=== PATIENT | female | born 1945 | race Caucasian/White ===

== ENCOUNTER 2023-08-02 09:30 | Day surgery (SDC) | payer MEDICARE ==
[2023-08-02] MEDS ORDERED: Sodium Chloride 0.9(Preservative Free) 10 ML IJ ONE (09:31)
[2023-08-02] MEDS ORDERED: XYLOCAINE-MPF 1% 5ML SDV IJ ONE (09:31)
[2023-08-02] MEDS ORDERED: Depo-Medrol 40 MG/ML IM ONE (09:31)
[2023-08-02] MEDS ORDERED: Lactated Ringers 1,000 ML IV ONE (12:16)
--- NOTE | 2023-08-02 14:06 | XRAY ---
Indication: Lumbar GIUSEPPE. Intraoperative fluoroscopy provided for 17 seconds. 2 digital spot image submitted for interpretation demonstrates posterior needle tip projecting posterior to lumbosacral junction interspace. Small amount of contrast injected for needle tip placement. Correlate with intraoperative findings/report. Incidental L4-L5 spinous process and left L5-S1 fusion hardware.
--- NOTE | 2023-08-02 15:13 | XRAY ---
17 seconds of fluoroscopy was used in surgery for a lumbar GIUSEPPE.
== END 2023-08-02 12:20 | disposition home or self-care (01) ==
LOC: SDC-PAIN 09:30
PROVIDERS: ATTEND Psychiatry & Neurology Pain Medicine
DX: M54.16 Radiculopathy, lumbar region (principal)
CPT/HCPCS: 62323; 72100; 77003; J1030; Q9966

== ENCOUNTER 2024-08-08 16:07 | Emergency (ER) | payer MEDICARE, OTHER ==
[2024-08-08 16:35] VITALS: TEMP 98.2
[2024-08-08] MEDS ORDERED: DUONEB 0.5-3 MG/3 ml Neb IH ONE (17:23)
[2024-08-08] MEDS: DUONEB 0.5-3 MG/3 ml Neb IH ONE (17:24)
--- NOTE | 2024-08-08 17:26 | XRAY ---
Indication: Cough. Comparison: None Portable chest hyperinflated with mild left base pleural effusion/thickening. Remaining heart and lungs unremarkable with incidental left base/left hilar calcified granulomas and coronary stent. Bony thorax intact with osteopenia, mild degenerative changes, and left shoulder arthroplasty.
--- NOTE | 2024-08-08 17:35 | ERPHSYRPT ---
- History of Present Illness Time Seen by Provider: 08/08/24 16:10 Source: patient Exam Limitations: no limitations Patient Subjective Stated Complaint: pt c/o of worsening cough, lung pain and swollen area under right eye, pt had a doctors appt today and she told her to go to the ER due to her worsening cough and the lung pain Triage Nursing Assessment: Pt brought to the ER by her home health care, hypertensive, rates overall pain as 7/10, pulses normal, skin n/w/d, smoker, reports lung pain on the right side, denies cardiac pain, doesn't appear to be in any distress Physician History: 79 years old female with multiple medical problems including chronic respiratory failure secondary to COPD, coronary artery disease with stenting, congestive heart failure, presented in the ER from primary care office with concern for increasing shortness of breath and lower extremity swellings to rule out CHF. Patient reports she has shortness of breath at her baseline which is a little more worse than usual and also coughing up clear to yellow sputum moderate in amount for the last 1 week. No fever or chills reported. Reports it hurts in the lower center of the chest with deep breathing and taking anything orally and does have history of esophageal strictures needing dilatation on a regular basis. No fever or chills reported. Patient oxygen saturation is in mid 90s on 3 L oxygen which she is normally on. Allergies/Adverse Reactions: atorvastatin [From Lipitor] Allergy (Verified 08/08/24 16:35) Home Medications: Albuterol Sulfate [Albuterol Sulfate Hfa] 2 inh PO QID 08/08/24 [History] Amitriptyline HCl 75 mg PO HS 08/08/24 [History] Clopidogrel Bisulfate [Clopidogrel] 75 mg PO QAM 08/08/24 [History] Escitalopram Oxalate 10 mg PO HS 08/08/24 [History] Famotidine 20 mg PO HS 08/08/24 [History] Ferrous Sulfate 325 mg [Feosol 325 mg] 325 mg PO DAILY 08/08/24 [History] Fluticasone/Umeclidin/Vilanter [Trelegy Ellipta 100-62.5-25] 1 each IH DAILY 08/08/24 [History] Isosorbide Mononitrate 30 mg [Imdur 30 MG] 30 mg PO DAILY 08/08/24 [Hi story] PANTOPRAZOLE 40 mg Tablet [Protonix 40MG Tablet] 40 mg PO QAM 08/08/24 [History] Primidone 50 MG [Mysoline 50Mg] 50 mg PO HS 08/08/24 [History] Promethazine HCl 25 mg [Phenergan 25 mg] 25 mg PO UD PRN 08/08/24 [History] Theophylline Anhydrous [Theophylline ER] 300 mg PO QAM 08/08/24 [History] Tolterodine Tartrate [Tolterodine Tartrate ER] 2 mg PO QAM 08/08/24 [History] Hx Influenza Vaccination/Date Given: Yes Hx Pneumococcal Vaccination/Date Given: Yes Travel Risk - International Travel Have you traveled outside of the country in past 3 weeks: No - Emerging Infectious Disease Are you exhibiting symptoms associated with any current EIDs: No - Review of Systems Constitutional: Fatigue Eyes: No Symptoms Ears, Nose, & Throat: Nose Congestion Respiratory: Cough, Dyspnea, Dyspnea on Exertion (SIDDIQUI), Wheezing Cardiac: Chest Pain, Edema Abdominal/Gastrointestinal: No Symptoms Genitourinary Symptoms: No Symptoms Musculoskeletal: Myalgias Skin: No Symptoms Neurological: No Symptoms Psychological: No Symptoms Endocrine: No Symptoms Hematologic/Lymphatic: No Symptoms Immunological/Allergic: No Symptoms - Past Medical History Pertinent Past Medical History: Yes Neurological History: Peripheral Neuropathy Cardiac History: Angina, Myocardial Infarction (OR) Respiratory History: Asthma, COPD, Emphysema, Sleep Apnea GI Medical History: GERD Psycho-Social History: Depression - Past Surgical History Past Surgical History: Yes Cardiac: Cardiac Stent Gastrointestinal: Appendectomy, Cholecystectomy Musculoskeletal: Orthopedic Surgery Female Surgical History: Hysterectomy Other Surgical History: shoulder replacement, left hand finger - Social History Smoking Status: Current every day smoker Exposure to second hand smoke: Yes Drug Use: none - Social Determinants of Health Will the patient participate in the screening: Yes Do you worry about a steady place to live?: No Do you have any problems with any of the following?: No known problems In the past 12 months,have you had to go without utilities?: No Transportation Issues: No Has anyone in your support network made you feel unsafe?: No Have you or anyone in your house had to go w/o enough food: No - Nursing Vital Signs Nursing Vital Signs: Initial Vital Signs Temperature 98.2 F 08/08/24 16:21 Pulse Rate 87 08/08/24 16:21 Respiratory Rate 23 08/08/24 16:21 Blood Pressure 156/95 08/08/24 16:21 O2 Sat by Pulse Oximetry 96 08/08/24 16:21 Pain Scale Pain Intensity 0 - Physical Exam General Appearance: no apparent distress, alert Eye Exam: PERRL/EOMI Ears, Nose, Throat Exam: hearing grossly normal Neck Exam: normal inspection, supple, full range of motion Respiratory Exam: diminished breath sounds, rhonchi, wheezing Cardiovascular/Chest Exam: normal heart sounds, regular rate/rhythm, edema (1+ bilateral pitting edema) Abdominal/Gastrointestinal Exam: soft, normal bowel sounds, No tenderness Extremity Exam: non-tender, normal range of motion Neurologic Exam: alert, oriented x 3, cooperative Skin Exam: normal color SpO2 Interpretation: O2 applied SpO2: 97 O2 Delivery: Nasal Cannula (3 L) - Course EKG Interpreted by Me: RATE (81), Sinus Rhythm, NORMAL AXIS, NORMAL INTERVALS, Q-wave, Non-specific ST Changes Ordered Tests: Active Orders 24 hr Category Date Time Status EKG-ER Only STAT Care 08/08/24 17:40 Completed CHEST 1 VIEW (PORTABLE) Stat Exams 08/08/24 16:27 Completed BLOOD CULTURE Stat Lab 08/08/24 17:52 Received CBC W DIFF Stat Lab 08/08/24 17:16 Completed CMP Stat Lab 08/08/24 17:40 Completed Lactic Acid Stat Lab 08/08/24 17:40 Completed MAGNESIUM Stat Lab 08/08/24 17:40 Completed NT PRO BNPII Stat Lab 08/08/24 17:40 Completed TROPONIN Q4H Lab 08/08/24 17:40 Completed Respiratory Therapy Assessment DAILY RT 08/08/24 17:29 Completed Medication Summary Discontinued Medications Generic Name Dose Route Start Last Admin Trade Name Freq PRN Reason Stop Dose Admin Albuterol/Ipratropium 3 ml 08/08/24 17:16 08/08/24 17:24 Ipratropium/Albuterol Sulfate 3 Ml Ampul.Neb IH 08/08/24 17:17 3 ml STAT ONE Administration Albuterol/Ipratropium Confirm 08/08/24 17:23 Ipratropium/Albuterol Sulfate 3 Ml Ampul.Neb Administered 08/08/24 17:24 Dose 3 ml IH .STK-MED ONE Doxycycline Hyclate 100 mg 08/08/24 19:52 08/08/24 20:11 Doxycycline Hyclate 100 Mg Tablet PO 08/08/24 19:53 100 mg STAT ONE Administration Doxycycline Hyclate Confirm 08/08/24 20:09 Doxycycline Hyclate 100 Mg Tablet Administered 08/08/24 20:10 Dose 100 mg .ROUTE .STK-MED ONE Prednisone 60 mg 08/08/24 19:52 08/08/24 20:11 Prednisone 20 Mg Tablet PO 08/08/24 19:53 60 mg STAT ONE Administration Prednisone Confirm 08/08/24 20:09 Prednisone 20 Mg Tablet Administered 08/08/24 20:10 Dose 60 mg .ROUTE .STK-MED ONE Lab/Rad Data: Laboratory Result Diagrams 08/08/24 17:16 08/08/24 17:40 Laboratory Results 08/08/24 08/08/24 08/08/24 Range/Units 17:56 17:40 17:40 WBC (3.98-10.04) x10^3/uL RBC (3.93-5.22) x10^6/uL Hgb (11.2-15.7) g/dL Hct (34.1-44.9) % MCV (79.4-94.8) fL MCH (25.6-32.2) pg MCHC (32.2-35.5) g/dL RDW (11.7-14.4) % Plt Count (182-369) x10^3/uL MPV (9.4-12.3) fL Gran % (34.0-71.1) % Immature Gran % (Auto) (0.001-0.429) % Nucleat RBC Rel Count (0.00-0.2) % Eos # (Auto) (0.04-0.36) x10^3/uL Immature Gran # (Auto) (0.001-0.031) x10^3u/L Absolute Lymphs (auto) (1.18-3.74) x10^3/uL Absolute Monos (auto) (0.24-0.86) x10^3/uL Absolute Nucleated RBC (0.00-0.012) x10^3u/L Lymphocytes % (19.3-51.7) % Monocytes % (4.7-12.5) % Eosinophils % (0.7-5.8) % Basophils % (0.1-1.2) % Absolute Granulocytes (1.56-6.13) x10^3/uL Basophils # (0.01-0.08) x10^3/uL Sodium 140 (135-145) mmol/L Potassium 4.4 (3.5-5.1) mmol/L Chloride 100 (98-107) mmol/L Carbon Dioxide 33 H (22-30) mmol/L Anion Gap 10.6 (5-15) MEQ/L BUN 17 (7-17) mg/dL Creatinine 0.73 (0.52-1.04) mg/dL Estimated GFR 84.1 ML/MIN Glucose 102 (74-106) mg/dL Lactic Acid (0.4-2.0) Calcium 9.4 (8.4-10.2) mg/dL Magnesium 1.9 (1.6-2.3) mg/dL Total Bilirubin 0.30 (0.2-1.3) mg/dL AST 24 (14-36) U/L ALT 12 (0-35) U/L Alkaline Phosphatase 72 (38-126) U/L Troponin I 0.016 (0.000-0.033) ng/mL NT-Pro-B Natriuret Pep 494 (<300) pg/mL Serum Total Protein 6.4 (6.3-8.2) g/dL Albumin 3.8 (3.5-5.0) g/dL Influenza Type A Ag NEGATIVE (NEGATIVE) Influenza Type B Ag NEGATIVE (NEGATIVE) RSV (PCR) NEGATIVE (NEGATIVE) SARS-CoV-2 (PCR) NEGATIVE (NEGATIVE) 08/08/24 08/08/24 Range/Units 17:40 17:16 WBC 5.5 (3.98-10.04) x10^3/uL RBC 4.52 (3.93-5.22) x10^6/uL Hgb 13.9 (11.2-15.7) g/dL Hct 44.1 (34.1-44.9) % MCV 97.6 H (79.4-94.8) fL MCH 30.8 (25.6-32.2) pg MCHC 31.5 L (32.2-35.5) g/dL RDW 13.5 (11.7-14.4) % Plt Count 207 (182-369) x10^3/uL MPV 9.2 L (9.4-12.3) fL Gran % 56.1 (34.0-71.1) % Immature Gran % (Auto) 0.4 (0.001-0.429) % Nucleat RBC Rel Count 0.0 (0.00-0.2) % Eos # (Auto) 0.20 (0.04-0.36) x10^3/uL Immature Gran # (Auto) 0.02 (0.001-0.031) x10^3u/L Absolute Lymphs (auto) 1.68 (1.18-3.74) x10^3/uL Absolute Monos (auto) 0.44 (0.24-0.86) x10^3/uL Absolute Nucleated RBC 0.00 (0.00-0.012) x10^3u/L Lymphocytes % 30.7 (19.3-51.7) % Monocytes % 8.0 (4.7-12.5) % Eosinophils % 3.7 (0.7-5.8) % Basophils % 1.1 (0.1-1.2) % Absolute Granulocytes 3.07 (1.56-6.13) x10^3/uL Basophils # 0.06 (0.01-0.08) x10^3/uL Sodium (135-145) mmol/L Potassium (3.5-5.1) mmol/L Chloride (98-107) mmol/L Carbon Dioxide (22-30) mmol/L Anion Gap (5-15) MEQ/L BUN (7-17) mg/dL Creatinine (0.52-1.04) mg/dL Estimated GFR ML/MIN Glucose (74-106) mg/dL Lactic Acid 0.8 (0.4-2.0) Calcium (8.4-10.2) mg/dL Magnesium (1.6-2.3) mg/dL Total Bilirubin (0.2-1.3) mg/dL AST (14-36) U/L ALT (0-35) U/L Alkaline Phosphatase (38-126) U/L Troponin I (0.000-0.033) ng/mL NT-Pro-B Natriuret Pep (<300) pg/mL Serum Total Protein (6.3-8.2) g/dL Albumin (3.5-5.0) g/dL Influenza Type A Ag (NEGATIVE) Influenza Type B Ag (NEGATIVE) RSV (PCR) (NEGATIVE) SARS-CoV-2 (PCR) (NEGATIVE) - Progress Progress: improved, re-examined Air Movement: good Progress Note: 08/08/24 19:53 79 years old is evaluated in the ER for shortness of breath and cough productive of yellow to clear sputum moderate in amount. Also having some bilateral lower extremity swelling. Patient has history of CHF but not taking any diuretics. EKG is sinus rhythm with no ST elevations. Chest x-ray showed no focal consolidation reviewed by me followed by official read. Has normal white count, fairly unremarkable chemistries including normal lactate and troponin. Has BNP 400s. She is given neb treatment and steroid, feeling better on reevaluation and maintaining oxygen saturation in upper 90s on 3 L oxygen. She is not in any distress. I believe patient has COPD exacerbation and overall will start her on doxycycline and a short course of steroid and will give her Lasix to take every day for next few days and outpatient follow-up. I do not think patient needs to be admitted and can be managed outpatient. Discussed results of workup and plan of discharge which she understands and agrees. Stable for discharge. 08/08/24 19:57 Blood Culture(s) Obtained: Yes Antibiotics given: Yes Counseled pt/family regarding: lab results, diagnosis, need for follow-up, rad results, smoking cessation Medical Desision Making - Independent Historian Additional History obtained from: Watershed Manager - Diagnostic Testing Diagnostic test were ordered, analyzed, and reviewed by me: Yes Radiological Interpretation: Interpreted by me, Reviewed by me - Risk of complications The pt has a mod risk of morbidity or mortality based on: Need for prescription drug management - Departure Departure Disposition: Home Clinical Impression: COPD exacerbation, CHF (congestive heart failure) Condition: Stable Critical Care Time: No Referrals: KIMBERLYN BUCIO FNP [Primary Care Provider] - Follow up with PCP 1 day Instructions: Heart Failure, Chronic Obstructive Pulmonary Disease, Heart Failure ED, COPD exacerbation in adults - ED discharge instructions Additional Instructions: Continue with inhaler/nebulizer every 4-6 hours as recommended. Continue with your oxygen. Do not smoke. Follow-up with your primary care and cardiology for reevaluation. Return to ER for worsening cough/difficulty breathing or if develop fever chills. Take Lasix daily for next 5 days and follow-up with PCP, keep your legs elevat ed, take low-salt diet. Return to ER for worsening. Prescriptions: Prednisone 20 mg [Deltasone 20 mg] 40 mg PO DAILY 5 Days #10 tablet Furosemide 20 mg [Lasix 20 mg] 20 mg PO DAILY 5 Days #5 tablet Doxycycline Hyclate 100 mg [Vibramycin 100 MG] 100 mg PO BID #14 tab
[2024-08-08 18:03] LABS: Absolute Neutrophil Ct (ANC) 3.07 x10^3/uL (1.56-6.13); BASOPHIL % 1.1 % (0.1-1.2); Basophil (Absolute #) 0.06 x10^3/uL (0.01-0.08); Eosinophil % 3.7 % (0.7-5.8); Hematocrit 44.1 % (34.1-44.9); Hemoglobin 13.9 g/dL (11.2-15.7); IMMATURE GRAN # 0.02 x10^3u/L (0.001-0.031); IMMATURE GRAN % 0.4 % (0.001-0.429); Lymphocyte (Absolute #) 1.68 x10^3/uL (1.18-3.74); Lymphocytes % 30.7 % (19.3-51.7); Mean Cell Volume 97.6 fL (79.4-94.8); Mean Corpuscular Hemoglobin 30.8 pg (25.6-32.2); Mean Corpuscular Hgb Concent. 31.5 g/dL (32.2-35.5); Mean Platelet Volume 9.2 fL (9.4-12.3); Monocyte (Absolute #) 0.44 x10^3/uL (0.24-0.86); Neutrophil % 56.1 % (34.0-71.1); Platelet Count 207 x10^3/uL (182-369); Red Blood Count 4.52 x10^6/uL (3.93-5.22); Red Cell Distribution Width 13.5 % (11.7-14.4); White Blood Count 5.5 x10^3/uL (3.98-10.04)
[2024-08-08 18:30] LABS: ALBUMIN 3.8 g/dL (3.5-5.0); ANION GAP 10.6 MEQ/L (5-15); BILIRUBIN,TOTAL 0.3 mg/dL (0.2-1.3); Calcium 9.4 mg/dL (8.4-10.2); Creatinine 1 0.73 mg/dL (0.52-1.04); EST GLOMERULAR FILTRATION RATE 84.1 ML/MIN; MAGNESIUM 1.9 mg/dL (1.6-2.3); Potassium 4.4 mmol/L (3.5-5.1); Total Protein 6.4 g/dL (6.3-8.2)
[2024-08-08 18:46] LABS: INFLUENZA A NEGATIVE (NEGATIVE); INFLUENZA B NEGATIVE (NEGATIVE); RESPIRATORY SYNCTIAL VIRUS NEGATIVE (NEGATIVE); SARS-CoV-2 Xpert Express NEGATIVE (NEGATIVE)
[2024-08-08 19:20] VITALS: O2SAT 97
[2024-08-08] MEDS ORDERED: DELTASONE 20 MG ONE (20:09)
[2024-08-08] MEDS ORDERED: Vibramycin 100 MG ONE (20:09)
[2024-08-08] MEDS: DELTASONE 20 MG PO ONE (20:11)
[2024-08-08] MEDS: Vibramycin 100 MG PO ONE (20:11)
[2024-08-08 20:13] VITALS: BP 188/81; PULSE 69; RESP 16
== END 2024-08-08 20:20 | disposition home or self-care (01) ==
LOC: ED 16:07
DX: J44.1 Chronic obstructive pulmonary disease with (acute) exacerbation (principal); I50.9 Heart failure, unspecified; R06.02 Shortness of breath; R05.1 Acute cough; R07.9 Chest pain, unspecified; Z79.02 Long term (current) use of antithrombotics/antiplatelets; Z79.899 Other long term (current) drug therapy; Z79.52 Long term (current) use of systemic steroids; Z72.0 Tobacco use; Z99.81 Dependence on supplemental oxygen
CPT/HCPCS: 0241U; 36415; 71045; 80053; 83605; 83735; 83880; 84484; 85025; 87040; 93005; 94640; 99285; 99284; A9270-GY